=== PATIENT | female | born 1945 | race Caucasian/White ===

== ENCOUNTER 2017-05-18 13:55 | Inpatient (IN) | payer OTHER ==
[~2017-05-18] VITALS: Ht 147.3 cm; Wt 66.7 kg
[2017-05-18] MEDS ORDERED: LISINOPRIL-HCT1 EAC1 PO (14:39)
[2017-05-18] MEDS ORDERED: AMLODIPINE BESYL5 MG PO (14:39)
== END 2017-05-21 10:16 | disposition home or self-care (01) | DRG 735 ==
LOC: O/R 05-20 05:20 → OB/GYN 05-20 05:20 → SURG 05-20 13:54 → OB/GYN 05-20 16:56 → SURG 05-20 23:00 → OB/GYN 05-21 10:16
PROVIDERS: Obstetrics & Gynecology Gynecologic Oncology
PROC: 07TC4ZZ Resection of Pelvis Lymphatic, Percutaneous Endoscopic Approach (ICD-10-PCS; 2017-05-20)
PROC: 0UT74ZZ Resection of Bilateral Fallopian Tubes, Percutaneous Endoscopic Approach (ICD-10-PCS; 2017-05-20)
PROC: 0UT24ZZ Resection of Bilateral Ovaries, Percutaneous Endoscopic Approach (ICD-10-PCS; 2017-05-20)
PROC: 0UT94ZZ Resection of Uterus, Percutaneous Endoscopic Approach (ICD-10-PCS; principal; 2017-05-20 23:00)
DX: C53.0 Malignant neoplasm of endocervix (principal); D27.1 Benign neoplasm of left ovary